=== PATIENT | female | born 2000 | race Caucasian/White ===

== ENCOUNTER 2022-04-29 01:06 | Emergency (ER) | payer SELFPAY ==
[~2022-04-29] VITALS: Ht 167.6 cm; Wt 63.5 kg
--- NOTE | 2022-04-29 02:00 | NUR ---
BIB TO ER BED 14. AAOX4. NOT IN RESP DISTRESS. BROUGHT IN FOR INGESTION OF MUSHROOMS. PT IS FEELING ANXIOUS. PT HAVE USED USHROOM IN THE PAST. WAS AT THE BEDSIDE FOR EVAL.
--- NOTE | 2022-04-29 03:15 | NUR ---
Patient discharged to home in stable condition. Written and verbal after care instructions given. Patient verbalizes understanding of instruction. Pt ambulatory with a steady gait. IV removed. Catheter intact and site benign. Pressure and 4x4 applied to site. No bleeding noted.
[2022-04-29 03:53] VITALS: BP 134/72
== END 2022-04-29 03:18 | disposition home or self-care (01) ==
LOC: ER 01:20
DX: T62.0X1A Toxic effect of ingested mushrooms, accidental (unintentional), initial encounter (principal); F16.10 Hallucinogen abuse, uncomplicated; Y92.89 Other specified places as the place of occurrence of the external cause